=== PATIENT | female | born 1995 | race Hispanic/Latino ===

== ENCOUNTER 2019-03-28 22:05 | Observation (INO) | payer SELFPAY ==
--- NOTE | 2019-03-28 22:07 | DI.US.S_ITS ---
PROCEDURE: US PELVIC COMPLETE INDICATIONS: POSITIVE ; PAIN, BLEEDING TECHNIQUE: Real-time scanning was performed of the pelvic organs, with image documentation. Additional endovaginal scanning was necessary due to incomplete visualization of the adnexal and endometrial structures by transabdominal scanning. COMPARISON: None. FINDINGS: Transabdominal scanning: Limited scanning through the kidneys shows no hydronephrosis. Large amount of complex free fluid noted in the pelvis. Endovaginal scanning: Uterus: Uterus is normal in size at 7.6 x 3.4 x 4.6 cm. The endometrium measures 3.2 mm in combined thickness. No intrauterine identified. Ovaries: Right adnexa measures 3.3 x 2.2 x 2.0 cm. There is a 1.4 x 1.1 x 1.4 cm complex cyst in the right adnexa. Left ovary measures 4.4 x 2.8 x 3.3 cm in there is a 3.3 x 2.4 x 2.6 cm complex cyst left adnexa. IMPRESSION: 1. No intrauterine identified. 2. Bilateral complex ovarian cysts. Ectopic cannot be excluded. 3. Large amount of complex free fluid suspicious for hemorrhage. Ruptured ectopic cannot be excluded. 4. Findings telephoned to Dr. Feliciano Rudd on 03/29/2019 at 0500 hours PDST. Dictated by: Carol Arrington MD, PhD on 03/29/2019 at 9:24 Approved by: Carol Arrington MD, PhD on 03/29/2019 at 9:44
--- NOTE | 2019-03-28 22:07 | ED.GENADULT ---
HPI - General Adult General Chief complaint: Vaginal Bleeding Stated complaint: with cramps and bleeding Time Seen by Provider: 03/28/19 22:06 Source: patient Mode of arrival: ambulatory Limitations: no limitations History of Present Illness HPI narrative: 23-year-old female at unknown gestational age. States that her last menstrual cycles of beginning of this month. States that she found out 3 days ago that she was after she went to an outside emergency department and was told there that she was . That visit was secondary to abdominal pain. She states that she did not have an ultrasound performed at that time. She comes in today for lower abdominal pain and cramping and vaginal bleeding. This has been going on for the past several hours. No vomiting. Related Data Allergies Allergy/AdvReac Type Severity Reaction Status Date / Time No Known Drug Allergies Allergy Verified 03/28/19 23:12 Review of Systems Constitutional Denies fever(s) and Denies headache(s) ENT Ears, Nose, Mouth, and Throat: Denies headache(s) Cardiovascular Denies chest pain and Denies dyspnea Respiratory Denies dyspnea Gastrointestinal Gastrointestinal: Reports abdominal pain, Denies change in stool character, Reports cramping, Denies nausea and Denies vomiting Genitourinary Denies dysuria and Reports vaginal discharge Musculoskeletal Denies back pain and Denies arthralgias Integumentary/Breasts Denies lesions and Denies rash Neurologic Denies behavioral changes and Denies headache(s) Psychiatric Denies behavioral changes Hematologic/Lymphatic Denies easy bleeding and Denies easy bruising Allergic/Immunologic Denies urticaria FOR[facility]LY [facility], [facility] Medical History Healthy adult (Acute) Social History household members: significant other, family and children Smoking Status: Current some day smoker alcohol intake: current Social History household members: significant other, family and children Smoking Status: Current some day smoker alcohol intake: current Exam Initial Vital Signs Initial Vital Signs: Vital Signs Temperature 97.6 F 03/28/19 22:12 Pulse Rate 85 03/28/19 22:12 Respiratory Rate 17 03/28/19 22:12 Blood Pressure 100/56 L 03/28/19 22:12 Pulse Oximetry 96 03/28/19 22:12 Const General: cooperative, healthy appearing, No comfortable (Uncomfortable), well developed, well groomed and No acute distress Orientation: alert and awake [facility] Head: normal to inspection and normocephalic Resp Effort & Inspection: normal respiratory effort Auscultation: clear to auscultation bilaterally Cardio Rate: regular rate Rhythm: regular rhythm Pulses: radial pulses present GI Inspection: non-distended Palpation: soft, No firm and tender (Bilateral lower abdomen) Back/Spine/Pelvis Back: No CVA tenderness Skin Lesions: no lesions Rashes: no rashes Neuro General: alert and awake Cognition: normal cognition Speech: speech normal Extrem General: normal to inspection, capillary refill normal and No edema Psych Appearance: grossly normal and well kempt Scores GCS Hines coma scale eye opening: Spontaneous Hines coma scale verbal response: Orientated Hines coma scale motor response: Obey commands Hines coma scale total score: 15 Course Orders Ordered: ED Orders 03/28/19 22:07 US pelvic complete Stat 03/28/19 22:19 ABO RH Type Stat Antibody Screen Stat Basic Metabolic Panel Stat Complete Blood Count AUTO DIFF Stat HCG Quantitative Stat 03/28/19 23:20 Urine Microscopic Stat 03/29/19 00:28 Consult to Obstetrics Routine Education, smoking cessation ONGOING 03/29/19 05:00 Complete Blood Count AUTO DIFF DAILY HCG Quantitative DAILY Sodium Chloride (Normal Saline 0.9%) 1,000 mls @ 100 mls/hr IV CONT LENNIE Last Admin: 03/29/19 01:18 Dose: 100 mls/hr Morphine Sulfate (Morphine) 2 mg IV Q2HR PRN PRN Reason: Pain, Moderate (4-6) Morphine Sulfate (Morphine) 1 mg IV Q2HR PRN PRN Reason: Pain, Moderate (4-6) Last Admin: 03/29/19 00:50 Dose: 1 mg Ondansetron HCl (Zofran) 4 mg IV Q8HR PRN PRN Reason: Nausea And Vomiting Discontinued Medications Hydrocodone Bitart/Acetaminophen ([place] 5/325) 1 tab PO NOW ONE Stop: 03/28/19 22:20 Last Admin: 03/28/19 22:32 Dose: 1 tab Sodium Chloride (Normal Saline 0.9%) 1,000 mls @ 125 mls/hr IV CONT LENNIE Last Infusion: 03/29/19 00:24 Dose: 125 mls/hr Admin: 03/28/19 23:45 Dose: 125 mls/hr Morphine Sulfate (Morphine) 4 mg IV NOW ONE Stop: 03/28/19 23:32 Last Admin: 03/28/19 23:44 Dose: 4 mg Vital Signs - 8 hr 03/28/19 22:12 03/28/19 23:00 03/29/19 00:25 Temperature 97.6 F 98.6 F Pulse Rate 85 61 70 Respiratory Rate 17 16 Blood Pressure 100/56 L 111/74 Blood Pressure [Right Arm] 109/68 Pulse Oximetry 96 97 100 Medical Decision Making Lab Data Lab results reviewed: Yes I reviewed the patient's lab results. Result diagrams: 03/28/19 22:19 03/28/19 22:19 Lab Results 03/28/19 03/28/19 03/28/19 Range/Units 22:19 22:19 22:19 WBC 18.1 H (4.5-11.0) X10^3/uL RBC 4.17 (4.0-5.2) X10^6/uL Hgb 10.8 L (12.0-16.0) g/dL Hct 33.7 L (36-46) % MCV 80.8 (80-100) fL MCH 25.8 L (26-34) PG MCHC 31.9 (30-36) % RDW 13.8 (11.6-14.8) % Plt Count 330 (150-400) X10^3/uL Neut % (Auto) 79.5 H (50-75) % Lymph % (Auto) 13.9 L (25-40) % [place] % (Auto) 6.3 (3-14) % Eos % (Auto) 0.1 L (2-4) % Baso % (Auto) 0.2 (0-2) % Neut # (Auto) 26264 H (2022-0710) /uL Lymph # (Auto) 2500 (8071-4721) /uL [place] # (Auto) 1100 H (0-900) /uL Eos # (Auto) 0 (0-450) /uL Baso # (Auto) 0 (0-100) /uL Sodium 137 (137-145) mmol/L Potassium 4.2 (3.4-5.1) mmol/L Chloride 104 (98-107) mmol/L Carbon Dioxide 25 (22-32) mmol/L BUN 17 (7-17) mg/dL Creatinine 0.70 (0.52-1.04) mg/dL Estimated GFR > 60.0 (>60) mL/min BUN/Creatinine Ratio 24.3 H (6-22) Glucose 151 H (70-100) mg/dL Calcium 8.9 (8.4-10.2) mg/dL HCG, Quant mIU/mL Urine RBC (0-5/HPF) Urine WBC (0-5/HPF) Ur Squamous Epith Cells (0-5/HPF) Urine Bacteria (None) Urine Mucus (Negative) Ur Culture Indicated? Blood Type O Positive Antibody Screen Negative 03/28/19 03/28/19 Range/Units 22:19 23:20 WBC (4.5-11.0) X10^3/uL RBC (4.0-5.2) X10^6/uL Hgb (12.0-16.0) g/dL Hct (36-46) % MCV (80-100) fL MCH (26-34) PG MCHC (30-36) % RDW (11.6-14.8) % Plt Count (150-400) X10^3/uL Neut % (Auto) (50-75) % Lymph % (Auto) (25-40) % [place] % (Auto) (3-14) % Eos % (Auto) (2-4) % Baso % (Auto) (0-2) % Neut # (Auto) (0094-0292) /uL Lymph # (Auto) (7393-6247) /uL [place] # (Auto) (0-900) /uL Eos # (Auto) (0-450) /uL Baso # (Auto) (0-100) /uL Sodium (137-145) mmol/L Potassium (3.4-5.1) mmol/L Chloride (98-107) mmol/L Carbon Dioxide (22-32) mmol/L BUN (7-17) mg/dL Creatinine (0.52-1.04) mg/dL Estimated GFR (>60) mL/min BUN/Creatinine Ratio (6-22) Glucose (70-100) mg/dL Calcium (8.4-10.2) mg/dL HCG, Quant 552.71 mIU/mL Urine RBC 5-10/hpf H (0-5/HPF) Urine WBC 0-1/hpf (0-5/HPF) Ur Squamous Epith Cells 1-5 /hpf (0-5/HPF) Urine Bacteria Few (2-10) H (None) Urine Mucus 2+ H (Negative) Ur Culture Indicated? Cult not indicated Blood Type Antibody Screen Point of Care Testing Test Results Positive Urine Dip Bedside Urine Glucose Negative Bedside Urine Bilirubin + 1 Bedside Urine Ketone ++ 40 Urine Specific [place] 1.030 Bedside Urine Occult Blood +++ Bedside Urine pH 6.0 Bedside Urine Protein + 30 Bedside Urine Urobilinogen - Negative Bedside Urine Nitrite - Negative Bedside Urine Leukocytes - Negative Esterase Point of care testing: Point of Care Testing Test Results Positive Urine Dip Bedside Urine Glucose Negative Bedside Urine Bilirubin + 1 Bedside Urine Ketone ++ 40 Urine Specific [place] 1.030 Bedside Urine Occult Blood +++ Bedside Urine pH 6.0 Bedside Urine Protein + 30 Bedside Urine Urobilinogen - Negative Bedside Urine Nitrite - Negative Bedside Urine Leukocytes - Negative Esterase Imaging Data US - abdomen: Radiologist's impression: Read by real radiology No intrauterine is identified. There is a large amount of complex free fluid concerning for hemorrhage. Ruptured ectopic should be excluded. Complex 6 structure in the left adnexa is indeterminate. MDM Narrative Medical decision making narrative: Patient is stable. Not tachycardic. Not hypotensive. She is Rh positive so no indication for RhoGAM. Her hCG quant is below the discriminatory zone and no IUP seen on pelvic ultrasound however given the complex fluid in the pelvis and the structure on the left adnexa there is concern for a ruptured ectopic . Patient is in quite a bit of discomfort. Had to be helped out of her car. Discussed the case with Dr. Zapata who is on-call for OB. She discussed the case with planning director who recommended admitting the patient for further evaluation. Discuss the ultrasound findings in the admission with the patient and her who is at bedside. They both expressed understanding and agreement with plan. Care turned over to the admitting provider at time of admission. Discharge Plan Departure Patient Disposition: Admitted as Observation Clinical Impression: Mass of left ovary, Vaginal bleeding Qualifiers: Weeks of gestation: less than 8 weeks Qualified Code(s): Z3A.01 - Less than 8 weeks gestation of Discharge Date/Time: 03/29/19 00:23 Interventions: ED Discharge Assessment Last Done: 03/29/19 00:25 Admit Date/Time: 03/28/19 23:35 Admit Provider: Katie Zapata
[2019-03-28 22:12] VITALS: BP 100/56; PULSE 85; RESP 17; TEMP 36.4; O2SAT 96; BMI 29.9
[2019-03-28 22:29] LABS: Add Manual Diff / Slide Review NO; Basophils Absolute Auto 0 /uL (0-100); Basophils Percent Auto 0.2 % (0-2); Eosinophils Absolute Auto 0 /uL (0-450); Eosinophils Percent Auto 0.1 % (2-4); Hematocrit 33.7 % (36-46); Hemoglobin 10.8 g/dL (12.0-16.0); Lymphocytes Absolute Auto 2500 /uL (1100-4500); Lymphocytes Percent Auto 13.9 % (25-40); Mean Corpuscular HGB Conc 31.9 % (30-36); Mean Corpuscular Hemoglobin 25.8 PG (26-34); Mean Corpuscular Volume 80.8 fL (80-100); Monocytes Absolute Auto 1100 /uL (0-900); Monocytes Percent Auto 6.3 % (3-14); Neutrophils Absolute Auto 14400 /uL (1500-7000); Neutrophils Percent Auto 79.5 % (50-75); Platelet Count 330 X10^3/uL (150-400); Red Blood Cell Count 4.17 X10^6/uL (4.0-5.2); Red Cell Distribution Width 13.8 % (11.6-14.8); White Blood Cell Count 18.1 X10^3/uL (4.5-11.0)
[2019-03-28] MEDS: HYDROCODONE/ACET 5/325 TABLET 1 TAB PO (22:32)
[2019-03-28 22:40] LABS: BUN Creatinine Ratio 24.3 (6-22); Blood Urea Nitrogen 17 mg/dL (7-17); Calcium 8.9 mg/dL (8.4-10.2); Carbon Dioxide 25 mmol/L (22-32); Chloride 104 mmol/L (98-107); Estimated Glomerular Filt Rate > 60.0 mL/min (>60); Glucose 151 mg/dL (70-100); HEMOLYSIS < 15 (0-50); Potassium 4.2 mmol/L (3.4-5.1); Sodium 137 mmol/L (137-145)
[2019-03-28 22:57] LABS: HCG Quantitative /Beta subunit 552.71 mIU/mL
[2019-03-28 23:00] VITALS: BP 109/68; PULSE 61; O2SAT 97
[2019-03-28] MEDS: MORPHINE 4 MG/ML INJ IV (23:44)
[2019-03-28] MEDS: SODIUM CHLORIDE 0.9% 1,000 ML 125 ML IV (23:45)
[2019-03-28 23:51] LABS: Bacteria Urine Few (2-10); Mucus Urine 2+ (Negative); RBC Urine 5-10/HPF (0-5/HPF); Squamous Epithelial Cell Urine 1-5 /HPF (0-5/HPF)
[2019-03-28 23:52] LABS: Culture Indicated Urine Cult Not Indicated; WBC Urine 0-1/HPF (0-5/HPF)
[2019-03-29 00:25] VITALS: BP 111/74; PULSE 70; RESP 16; TEMP 37; O2SAT 100
[2019-03-29] MEDS: MORPHINE 2 MG/ML INJ 1 MG IV (00:50)
[2019-03-29 00:57] VITALS: BMI 29.9
[2019-03-29] MEDS: SODIUM CHLORIDE 0.9% 1,000 ML 100 ML IV (01:18)
[2019-03-29 03:47] VITALS: BP 131/75; PULSE 97; RESP 15; TEMP 37; O2SAT 100
[2019-03-29] MEDS: MORPHINE 2 MG/ML INJ IV ×3 (03:53→08:51)
--- NOTE | 2019-03-29 04:57 | PC.ADMIT ---
Safe handoff from ER Nurse. Pt arrived on unit at 0025 via stretcher but was able to get out off and onto her bed. VSS, Lung sounds clear bilaterally. Pt in abdominal pain 8/10 medicated w/ Morphine 2mg [id number]. Pt is calm and cooperative. Boyfriend is with her at her side. Pt is bleeding w/ a pad and had a moderate ammt. of blood on pad. Pt was weak but able to get up to the bathroom w/ stand by assist. Pt has SCD's on, was taught about the use of her call light and it's in reach. [address] [facility] [address] Admission Note: The patient,Ashely Kirby,23 y/o, was given written information regarding hospital policies, unit procedures and contact persons. Patient's smoking status: Current some day smoker. Vital Signs - 8 hr 03/28/19 22:12 03/28/19 23:00 03/29/19 00:25 Temperature 97.6 F 98.6 F Pulse Rate 85 61 70 Respiratory Rate 17 16 Blood Pressure 100/56 L 111/74 Blood Pressure [Right Arm] 109/68 Pulse Oximetry 96 97 100 03/29/19 03:47 Temperature 98.6 F Pulse Rate 97 H Respiratory Rate 15 Blood Pressure 131/75 Blood Pressure [Right Arm] Pulse Oximetry 100
[2019-03-29 06:50] LABS: Add Manual Diff / Slide Review NO; Basophils Absolute Auto 0 /uL (0-100); Basophils Percent Auto 0.1 % (0-2); Eosinophils Absolute Auto 0 /uL (0-450); Eosinophils Percent Auto 0.1 % (2-4); Hematocrit 29.9 % (36-46); Hemoglobin 9.6 g/dL (12.0-16.0); Lymphocytes Absolute Auto 2700 /uL (1100-4500); Lymphocytes Percent Auto 18.7 % (25-40); Mean Corpuscular Hemoglobin 25.7 PG (26-34); Mean Corpuscular Volume 80.3 fL (80-100); Monocytes Absolute Auto 900 /uL (0-900); Monocytes Percent Auto 6.6 % (3-14); Neutrophils Absolute Auto 10700 /uL (1500-7000); Neutrophils Percent Auto 74.5 % (50-75); Platelet Count 295 X10^3/uL (150-400); Red Blood Cell Count 3.72 X10^6/uL (4.0-5.2); Red Cell Distribution Width 13.6 % (11.6-14.8); White Blood Cell Count 14.3 X10^3/uL (4.5-11.0)
[2019-03-29 07:19] LABS: HCG Quantitative /Beta subunit 383.38 mIU/mL
[2019-03-29 08:00] VITALS: BP 116/65; PULSE 95; RESP 16; TEMP 37.1; O2SAT 100
[2019-03-29 08:45] VITALS: O2SAT 100
--- NOTE | 2019-03-29 10:30 | CM.DANOTE ---
Addendum entered by Geneva Gamble R.N. 03/29/19 10:44: Confirmed that patient does have Medicaid. Original Note: DCP: Case received, EMR reviewed and met with patient. Her partner was at bedside as well. Introduced self and role. DCP assessment completed with information provided by patient. Patient is a 23 year old female who admitted yesterday evening to the care of the hospitalist team. Patient came to the hospital via vehicle secondary to abdominal pain and cramping. Patient had just found out that she was . Patient here for potential ectopic , miscarriage. Her partner was at bedside. Patient lives on [facility] with her family. P: Patient is being discharged home today. Will check on insurance status, if no insurance, will check in with change group. Geneva Gamble RN/[employer]
--- NOTE | 2019-03-29 12:53 | PC.NURSE ---
Discharge Pt asking questions this AM about if morphine would harm the baby. Explained to pt that while it's not good, it is possible to take morphine while . Called Dr Evans and explained that I don't think anyone explained to her about the miscarriage. MD came to visit and d/c pt. Educated pt on pain and pain management. Boyfriend went and got Rx filled for percocet. instructed on orders for taking percocet and managing pain. pt understands she should make apt with MD closer to her home as recommended by Dr Evans. pt took all belongings with her. PIV removed prior to d/c. Left in w/c with RN escort.
--- NOTE | 2019-03-30 06:32 | P.HP_ITS ---
History of Present Illness Date Patient Seen: 03/29/19 Time Patient Seen: 09:20 Chief complaint: with cramps and bleeding Narrative: Patient is a 23-year-old 2 para 1 who presented to the emergency department from [facility] with complaint of abdominal pain. In the emergency department she had a beta HCG which was 500. An ultrasound showed nothing in the uterus but a mass on the ovary with free fluid consistent with blood in the pelvis. This morning her pain is improved. Her beta HCG is down to 383. A review of the ultrasound showed a probable ruptured corpus luteal cyst. Patient History Medical History Healthy adult (Acute) Social History household members: significant other, family and children Smoking Status: Current some day smoker alcohol intake: current Family & Social History Social History: household members significant other,family,children Prior Living Arrangements House Safety & Behavioral: Feels Safe in Current Yes Environment Been Physically Hurt or No Threatened By a Person Suicidal Ideation Description None Suicide Plan Description No Plan Tobacco & Substance use: Tobacco type cigarettes Smoking Status Current some day smoker alcohol intake current alcohol intake frequency a few times a week Substance Use Type marijuana Meds Home Medications Medication Instructions Recorded Confirmed Type oxycodone-acetaminophen [Percocet] 1 tab PO Q4-6H PRN #14 tab 03/29/19 Rx Allergies Allergy/AdvReac Type Severity Reaction Status Date / Time No Known Drug Allergies Allergy Verified 03/28/19 23:12 Exam Vital Signs (past 8 hours): Oxygen Delivery Method Room Air Oxygen Flow Rate 0 Narrative Exam Narrative: Generally: A well-developed, well-nourished female, no acute distress Lungs: Clear to auscultation bilaterally Cardiovascular: Regular rate and rhythm Abdomen: Soft and flat. No guarding or rebound tenderness. No masses palpable. Objective Labs Result Diagrams: 03/29/19 06:24 03/28/19 22:19 Labs: Laboratory Results - last 24 hr 03/29/19 03/29/19 06:24 06:24 WBC 14.3 H RBC 3.72 L Hgb 9.6 L Hct 29.9 L MCV 80.3 MCH 25.7 L MCHC 32.0 RDW 13.6 Plt Count 295 Neut % (Auto) 74.5 Lymph % (Auto) 18.7 L Door % (Auto) 6.6 Eos % (Auto) 0.1 L Baso % (Auto) 0.1 Neut # (Auto) 01121 H Lymph # (Auto) 2700 Door # (Auto) 900 Eos # (Auto) 0 Baso # (Auto) 0 HCG, Quant 383.38 Assessment & Plan Assessment & Plan narrative: Assessment: 23-year-old 2 para 1 with a miscarriage and a ruptured corpus luteal cyst Plan: Discharge to home Follow-up with Dr. Davis in 1 week for a beta HCG Patient to return with fever, chills, worsening abdominal pain, or bleeding vaginally more than a pad in an hour Time Spent With Patient Time with patient: 15-24 minutes Quality VTE Deep Vein Thrombosis/Pulmonary Embolism Present on Admission: No
--- NOTE | 2019-04-07 09:57 | PC.NURSE ---
Late entry: NS stopped 03/29 1571
== END 2019-03-29 11:12 | disposition home or self-care (01) ==
LOC: ED 23:13 → AC 23:35
PROVIDERS: Admitting Provider Family Medicine; Emergency Provider Emergency Medicine; Visit Provider Family Medicine
DX: N83.10 Corpus luteum cyst of ovary, unspecified side (principal); O20.9 Hemorrhage in early pregnancy, unspecified; F17.210 Nicotine dependence, cigarettes, uncomplicated; Z3A.01 Less than 8 weeks gestation of pregnancy
CPT/HCPCS: 36415; 36591; 76830; 76856; 80048; 81003; 81015; 81025; 84702; 85025; 86850; 86900; 86901; 96361; 96374; 96376; 99218; 99220; 99281; 99284; G0378; J2270